=== PATIENT | male | born 1965 | race Two or more races ===

== ENCOUNTER 2018-07-09 06:40 | Day surgery (SDC) | payer OTHER ==
[~2018-07-09 06:40] MED LIST: CELEXA20 MG PO; CLORAZEPATE D3.75 MG PO; ESTAZOLAM1 MG PO; PROTONIX40 M1 PO; ZYPREXA ZYDIS5 MG PO
== END 2018-07-09 16:45 | disposition home or self-care (01) ==
LOC: CIR.AMB 06:40
DX: M19.031 Primary osteoarthritis, right wrist (principal)